=== PATIENT | male | born 1970 | race Caucasian/White ===

== ENCOUNTER 2018-04-29 16:20 | Emergency (ER) | payer OTHER, MEDICARE, SELFPAY ==
[2018-04-29 16:28] VITALS: BP 126/73; PULSE 71; RESP 14; TEMP 36.6; O2SAT 98; BMI 29.8
--- NOTE | 2018-04-29 19:30 | ED_ITS ---
HPI - Skin/Abscess/Foreign Bdy <ROYER Nunez - Last Filed: 04/29/18 21:50> General Chief complaint: Skin/Abscess/Foreign Body Stated complaint: BREAKING OUT ALL OVER Time Seen by Provider: 04/29/18 19:30 Source: patient Mode of arrival: ambulatory Limitations: no limitations History of Present Illness HPI narrative: 47-year-old male here for complaint of having rash to his lower back into his left arm over the past day. He states that the rash itches. He denies any changes in hygiene. Denies any changes in medication. No other concerns or complaints. No fevers or chills. Positive p.o. intake no nausea vomiting. MD complaint: rash Related Data Previous Rx's Medication Instructions Recorded fexofenadine 180 mg PO DAILY #7 tab 04/29/18 Allergies Allergy/AdvReac Type Severity Reaction Status Date / Time No Known Drug Allergies Allergy Verified 04/29/18 16:28 Review of Systems <ROYER Nunez - Last Filed: 04/29/18 21:50> Constitutional Denies chills, Denies fever(s), Denies lethargy and Denies weakness Eyes Denies change in vision, Denies eye discharge, Denies irritation and Denies loss of vision ENT Ears, Nose, Mouth, and Throat: Denies change in voice, Denies neck pain and Denies sore throat Cardiovascular Denies chest pain, Denies irregular heart rhythm, Denies lightheadedness, Denies palpitations, Denies dyspnea, Denies dyspnea on exertion and Denies orthopnea Respiratory Denies cough, Denies dyspnea, Denies dyspnea on exertion and Denies wheezing Gastrointestinal Gastrointestinal: Denies abdominal pain, Denies change in bowel habits, Denies diarrhea, Denies nausea and Denies vomiting Genitourinary Denies hematuria, Denies flank pain, Denies urinary incontinence and Denies urinary urgency Musculoskeletal Denies neck pain Integumentary/Breasts Denies pruritus, Denies erythema, Reports rash and Denies wounds Neurologic Denies confusion, Denies loss of vision and Denies weakness Psychiatric Denies anxiety, Denies confusion, Denies depression, Denies homicidal ideation and Denies suicidal ideation Endocrine Denies palpitations Hematologic/Lymphatic Denies easy bruising Allergic/Immunologic Denies wheezing Exam <ROYER Nunez Last Filed: 04/29/18 21:50> Initial Vital Signs Initial Vital Signs: Vital Signs Temperature 97.9 F 04/29/18 16:28 Pulse Rate 71 04/29/18 16:28 Respiratory Rate 14 04/29/18 16:28 Blood Pressure 126/73 04/29/18 16:28 Pulse Oximetry 98 04/29/18 16:28 Const General: cooperative and well developed Nutritional Appearance: well nourished Orientation: alert, awake, oriented x3 and not confused HENNC Mouth: oral mucosae normal and moist mucous membranes Eyes General: appearance normal, both eyes and all related structures Eyelids: eyelids normal Conjunctivae: conjunctivae normal Sclera: sclerae normal Pupils: PERRL EOM: EOM intact bilaterally Chest Chest: normal inspection of the chest Resp Effort & Inspection: normal respiratory effort, able to speak in complete sentences, no respiratory distress and no use of accessory muscles Auscultation: clear to auscultation bilaterally, no rales, no rhonchi and no wheezes Skin General: No jaundice and No petechiae Rashes: rashes noted (Macular papular rash to back and to left arm) Neuro General: alert, oriented x3, gait normal and no focal motor deficits Speech: speech normal <DO Emeli Berry Last Filed: 04/30/18 01:17> Initial Vital Signs Initial Vital Signs: Vital Signs Temperature 97.9 F 04/29/18 16:28 Pulse Rate 71 04/29/18 16:28 Respiratory Rate 14 04/29/18 16:28 Blood Pressure 126/73 04/29/18 16:28 Pulse Oximetry 98 04/29/18 16:28 Course <ROYER Nunez - Last Filed: 04/29/18 21:50> Vital Signs - 8 hr 04/29/18 20:35 Temperature 98.3 F Pulse Rate 58 L Respiratory Rate 17 Blood Pressure 125/76 Pulse Oximetry 99 <DO Emeli Berry Last Filed: 04/30/18 01:17> Vital Signs - 8 hr 04/29/18 20:35 Temperature 98.3 F Pulse Rate 58 L Respiratory Rate 17 Blood Pressure 125/76 Pulse Oximetry 99 MDM - Skin/Abscess/Foreign Bdy <ROYER Nunez - Last Filed: 04/29/18 21:50> MDM Narrative Medical decision making narrative: Differential diagnosis between histamine response and a viral rash. Patient is no acute distress. No shortness of breath. Will treat with Luz Maria and Benadryl at night. Plenty of fluids and rest. Follow up with primary care provider the next few days for re- evaluation. For any worsening symptoms return to the emergency room. Discharge Plan Departure Patient Disposition: Home Clinical Impression: Rash in adult Discharge Date/Time: 04/29/18 20:36 Interventions: ED Discharge Assessment Last Done: 04/29/18 20:35 Instructions: DI for Rash Activity Restrictions/Additional Instructions: Differential between viral rash or histamine related rash. To cover for histamine rash are good prescribed Luz Maria. You may use Benadryl at night as this may cause drowsiness. Follow up with her primary care doctor in the next few days for re-evaluation. For any worsening symptoms return to the emergency room. Plenty of fluids and rest. Prescriptions: New fexofenadine 180 mg tablet 180 mg PO DAILY Qty: 7 RF: 0 Referrals: [facility] [Provider Group] <Uri Bernardo DO - Last Filed: 04/30/18 01:17> Cosign ED Attending Luann Attestation: I was immediately available in the department for consultation. Documentation has been reviewed. I agree with assessment and plan.
[2018-04-29 20:35] VITALS: BP 125/76; PULSE 58; RESP 17; TEMP 36.8; O2SAT 99
== END 2018-04-29 20:36 | disposition home or self-care (01) ==
PROVIDERS: Emergency Provider Nurse Practitioner Family
DX: R21 Rash and other nonspecific skin eruption (principal)
CPT/HCPCS: 99282

== ENCOUNTER 2018-05-02 08:44 | Emergency (ER) | payer OTHER, MEDICARE, SELFPAY ==
[2018-05-02 08:56] VITALS: BP 130/84; PULSE 51; RESP 16; TEMP 36.6; O2SAT 98
--- NOTE | 2018-05-02 09:01 | ED.SKABFB ---
HPI - Skin/Abscess/Foreign Bdy General Chief complaint: Skin/Abscess/Foreign Body Stated complaint: RASH GOTTEN WORSE/THROAT HURTS Time Seen by Provider: 05/02/18 08:52 Source: patient and old records reviewed Mode of arrival: ambulatory Limitations: no limitations History of Present Illness HPI narrative: The patient is a 47-year-old male who presents with rash and itching. He was seen and evaluated here 2 days ago given prescription for Luz Maria which he says is not helping. He has also tried Benadryl which he says does not help. He says really it started 3 weeks ago where he had a rash on his hands from fishing he was given a taper dose of prednisone the prednisone finished and 3 days later this rash began. He does not have body aches fever or chills. Onset (ago): day(s) (3) Related Data Previous Rx's Medication Instructions Recorded fexofenadine 180 mg PO DAILY #7 tab 04/29/18 prednisone 40 mg PO DAILY #10 tab 05/02/18 Allergies Allergy/AdvReac Type Severity Reaction Status Date / Time No Known Drug Allergies Allergy Verified 04/29/18 16:28 Review of Systems Review of Systems GENERAL: Denies chills,fever HEENT: Denies throat pain RESPIRATORY: Denies dyspnea, cough, wheezing CARDIOVASCULAR: Denies chest pain, palpitations GASTROINTESTINAL: Denies nausea, vomiting MUSCULOSKELETAL: Denies extremity pain, injury SKIN: See HPI NEUROLOGIC: Denies weakness, dizziness, headache, numbness 8 point review of systems is negative except for those stated above and HPI PFSH Medical History Healthy adult (Acute) Social History Smoking Status: Never smoker Exam Initial Vital Signs Initial Vital Signs: Vital Signs Temperature 97.9 F 05/02/18 08:56 Pulse Rate 51 L 05/02/18 08:56 Respiratory Rate 16 05/02/18 08:56 Blood Pressure 130/84 05/02/18 08:56 Pulse Oximetry 98 05/02/18 08:56 GENERAL: Well-appearing, well-nourished and in no acute distress. HEENT: Head atraumatic,EOMI, pupils reactive, neck is supple no meningeal sign CARDIOVASCULAR: Peripheral pulses intact RESPIRATORY: Speaks in full EXTREMITIES: Normal range of motion, no clubbing or edema. Neurovascularly intact NEUROLOGICAL: Alert and oriented x4. Moving all extremities SKIN: Hives noted on right upper arm and all over back blanchable no petechiae no vesicles Course Vital Signs - 8 hr 05/02/18 08:56 Temperature 97.9 F Pulse Rate 51 L Respiratory Rate 16 Blood Pressure 130/84 Pulse Oximetry 98 Discharge Plan Departure Patient Disposition: Home Clinical Impression: Urticaria Discharge Date/Time: 05/02/18 09:17 Interventions: ED Discharge Assessment Last Done: 05/02/18 09:17 Instructions: DI for Hives Activity Restrictions/Additional Instructions: *You have been diagnosed with hives, allergic type reaction *Continue to take medications as directed Prednisone 40 mg once a day for 5 days May continue Benadryl 50 mg every 6 hr if needed for itching May continue Luz Maria as needed take as directed *Follow up with your primary care provider in 2-3 days *Return to ER if you should have any new, worsening or concerning symptoms Prescriptions: New prednisone 20 mg tablet 40 mg PO DAILY Qty: 10 RF: 0 No Action fexofenadine 180 mg tablet 180 mg PO DAILY Qty: 7 RF: 0
== END 2018-05-02 09:17 | disposition home or self-care (01) ==
PROVIDERS: Emergency Provider Emergency Medicine
DX: L50.8 Other urticaria (principal)
CPT/HCPCS: 99282